=== PATIENT | male | born 1990 | race African-American/Black ===

== ENCOUNTER 2017-10-15 11:27 | Emergency (ER) | payer BC ==
[~2017-10-15] VITALS: Ht 188 cm; Wt 130.9 kg
[2017-10-15 11:33] VITALS: BP 126/73; TEMP 99.9
[2017-10-15] MEDS ORDERED: CEPHALEXIN250 M1 PO (11:37)
[2017-10-15] MEDS ORDERED: CLEOCIN HCL300 MG PO (12:25)
[2017-10-15 12:31] VITALS: PULSE 86
== END 2017-10-15 12:32 | disposition home or self-care (01) ==
LOC: COL.ER 11:27
DX: J02.0 Streptococcal pharyngitis (principal)

== ENCOUNTER 2020-12-01 08:44 | Outpatient (RCR) | payer OTHER ==
[~2020-12-01 08:44] MED LIST: CEPHALEXIN250 M1 PO; CLEOCIN HCL300 MG PO
== END 2021-03-01 | disposition home or self-care (01) ==
LOC: WSOH
DX: S29.012A Strain of muscle and tendon of back wall of thorax, initial encounter (principal); L73.2 Hidradenitis suppurativa; Y99.0 Civilian activity done for income or pay